=== PATIENT | male | born 1945 | race Caucasian/White ===

== ENCOUNTER → 2016-12-01 | Day surgery (SDC) | payer MEDICARE, OTHER ==
--- NOTE | 2016-11-27 11:55 | Pre-Procedure Note/Attestation ---
Pre-Procedure Note/Attestation Complete Prior to Procedure Planned Procedure: left Procedure Narrative: 1. CATARACT EXTRACTION WITH PHACO AND PC IOL IMPLANTATION, LEFT EYE. 2.MALYUGIN RING INSERTION, LEFT EYE FOR FLOPPY IRIS SYNDROME. 3.COMPLEX CATARACT , LEFT EYE Indications for Procedure Pre-Operative Diagnosis: 1. CATARACT ,LEFT EYE. 2. FLOPPY IRIS SYNDROME, LEFT EYE 3. COMPLEX CATARACT , LEFT EYE Attestation I attest that I discussed the nature of the procedure; its benefits; risks and complications; and alternatives (and the risks and benefits of such alternatives ), prior to the procedure, with the patient (or the patient's legal physician relations representative). I attest that, if there was a reasonable possibility of needing a blood transfusion, the patient (or the patient's legal physician relations representative) was given the [facility] standardized written summary, pursuant to the [place] Blood Safety Act ([place] Health and Safety Code # 1645, as amended). I attest that I re-evaluated the patient just prior to the surgery and that there has been no change in the patient's H&P, except as documented below: JANIA BURGER Nov 27, 2016 11:55
[2016-12-01] VITALS (10 sets, daily range): BP systolic 100–124; BP diastolic 62–75
[~2016-12-01] VITALS: Ht 177.8 cm; Wt 88.5 kg
[~2016-12-01] MED LIST: AMITIZA24 MCG ORAL; ARICEPT5 MG ORAL; Akten 3.5% 1ml Btl ONE; BSS 15ml BTL ONE; BSS 500ml btl ONE; Dexamethasone 4mg/ml vial ONE; Diclofenac Sod 0.1% Op Soln ONE; ECOTRIN325 MG ORAL; EPINEPHrine 1mg/1ml Amp ONE; Gatifloxacin Opth Solution 0.5% ONE; LR 1000ml 1,000 ML IVLG SCH; LR 1000ml ONE; Lidocaine 1% MPF 10mg/ml 5ml ONE; MIACALCIN1 SPRAYS NASAL; Maxitrol Opth Oint 3.5gm ONE; Midazolam 2mg/2ml Inj ONE; NAPROSYN500 M1 ORAL; NS Irrig 1000ml ONE; Phenylephrine 10% Opth Soln 5ml ONE; Povidone-Iodine 5% opth solution ONE; Propofol 10mg/ml 20ml IV ONE; Sodium Hyaluronate 10 mg/ml 0.85ml ONE; Sterile Water Irrig 1000ml IRRIG ONE; TAMSULOSIN HCL0.4 MG ORAL; TIZANIDINE HCL4 MG ORAL; Tropicamide 1% Opth Soln ONE; VITAMIN D400 INTLU ORAL; acetaZOLAMIDE 125mg tab ORAL ONE; fentaNYL 100 mcg/2 mL IV ONE; fentaNYL 100 mcg/2 mL IV PRN
[2016-12-01] MEDS: Phenylephrine 10% Opth Soln 5ml LEFT EYE SCH ×3 (07:07→07:30)
[2016-12-01] MEDS: Tropicamide 1% Opth Soln LEFT EYE SCH ×3 (07:07→07:31)
[2016-12-01] MEDS: Gatifloxacin Opth Solution 0.5% LEFT EYE SCH ×3 (07:08→07:34)
[2016-12-01] MEDS: Diclofenac Sod 0.1% Op Soln LEFT EYE SCH ×3 (07:08→07:31)
[2016-12-01] MEDS: Akten 3.5% 1ml Btl LEFT EYE SCH ×3 (07:09→07:34)
--- NOTE | 2016-12-01 08:23 | Anethesia Preoperative Eval ---
Anesthesia Pre-op PMH/ROS General Date of Evaluation: Dec 01, 2016 Time of Evaluation: 07:58 Anesthesiologist: Ethel ASA Score: ASA 2 Mallampati Score Class I : Soft palate, uvula, fauces, pillars visible Class II: Soft palate, uvula, fauces visible Class III: Soft palate, base of uvula visible Class IV: Only hard plate visible Mallampati Classification: Class II Surgeon: Andres Diagnosis: L eye cataract extraction with IOL Surgical Procedure: L eye cataract Anesthesia History: none Family History: no anesthesia problems Allergies: Coded Allergies: No Known Allergies (Unverified , 11/27/16) Medications: see eMAR Past Medical History Cardiovascular: Denies: CAD, HTN, OR, arrhythmia, other, valve dz Pulmonary: Denies: COPD, JEANIE, asthma, other Gastrointestinal/Genitourinary: Reports: GERD, Denies: CRI, ESRD, other Neurologic/Psychiatric: Denies: CVA, TIA, dementia, depression/anxiety, other Endocrine: Denies: DM, hypothyroidism, other, steroids HEENT: Reports: cataract (L), cataract (R), Denies: [place] (L[place] (R), glaucoma, other Hematology/Immune: Denies: DVT, anemia, bleeding disorder, other Musculoskeletal/Integumentary: Denies: DDD, DJD, OA, RA, edema, other PMH Narrative: as above PSxH Narrative: see chart Anesthesia Pre-op Phys. Exam Physician Exam Last Vital Signs Date Time Temp Pulse Resp B/P Pulse Ox O2 Delivery O2 Flow Rate FiO2 12/01/16 07:22 97.2 57 18 124/75 97 Room Air Constitutional: NAD Neurologic: CN 2-12 intact Cardiovascular: RRR, no M/R/G Respiratory: CTA Gastrointestinal: S/NT/ND Airway Exam Mallampati Score: Class II MO: full Neck: flexible ROM: full Teeth: missing Dentures: no lower, no upper Anesthesia Pre-op A/P Labs see chart Studies Pre-op Studies: EKG - NSR Risk Assessment & Plan Assessment: ASA 2 Plan: MAC Status Change Before Surgery: No Pre-Antibiotics Drug: none NAVEEN SILVER M.D. Dec 01, 2016 08:23
--- NOTE | 2016-12-01 08:58 | Brief Operative Note ---
Immediate Post Operative Note Operative Note Chief Complaint: Blurry vision, difficulty driving abd reading, left eye Pre-op Diagnosis: 1. CATARACT ,LEFT EYE. 2. FLOPPY IRIS SYNDROME, LEFT EYE 3. COMPLEX CATARACT , LEFT EYE Procedure: 1- Cataract extraction with phaco and PC IOL implantation, left eye 2- Malyugin ring insertion, left eye 3- Complex cataract, left eye Post-op Diagnosis: same as pre-op Surgeon: Jania Campos MD Bench Loom Weaver: None Additional Surgeons: None Anesthesiologist: jane Varela Anesthesia: MAC Specimen: none Complications: none Condition: stable Estimated Blood Loss: none Drains: none Implant(s) used?: Yes - Monofocal PC IOL implanted in the left eye without complication JANIA CAMPOS Dec 01, 2016 08:58
--- NOTE | 2016-12-01 09:24 | Immediate Post-Op Evaluation ---
Immediate Post-Op Evalulation Immediate Post-Op Evalulation Procedure: L eye cataract extraction with IOL Date of Evaluation: Dec 01, 2016 Time of Evaluation: 08:56 IV Fluids: 200 Blood Products: none Estimated Blood Loss: none Urinary Output: none Blood Pressure Systolic: 118 Blood Pressure Diastolic: 57 Pulse Rate: 64 Respiratory Rate: 20 O2 Sat by Pulse Oximetry: 99 Temperature (Fahrenheit): 97.5 Pain Score (1-10): 2 Nausea: No Vomiting: No Complications none Patient Status: awake, patent, none Hydration Status: adequate NAVEEN SILVER M.D. Dec 01, 2016 09:24
--- NOTE | 2016-12-01 09:58 | 48 Hour Post Anesthesia Eval ---
Post Anesthesia Evaluation Procedure: L eye cataract extraction with IOL Date of Evaluation: Dec 01, 2016 Time of Evaluation: 09:57 Blood Pressure Systolic: 122 0: 57 Pulse Rate: 68 Respiratory Rate: 20 Temperature (Fahrenheit): 97.6 O2 Sat by Pulse Oximetry: 98 Airway: patent Nausea: No Vomiting: No Pain Intensity: 2 Hydration Status: adequate Cardiopulmonary Status: stable Mental Status/LOC: patient returned to baseline Follow-up Care/Observations: n/a Post-Anesthesia Complications: none Follow-up care needed: ready to discharge NAVEEN SILVER M.D. Dec 01, 2016 09:58
--- NOTE | 2016-12-01 17:39 | Operative Note - Dictated ---
DATE OF OPERATION: 12/01/2016 FACILITY: [facility]. SURGEON: David Campos M.D. CLIENT DELIVERY SPECIALIST: None. ANESTHESIOLOGIST: Khanh Hawkins M.D. ANESTHESIA: Monitored anesthesia care (MAC). PREOPERATIVE DIAGNOSES: 1. Cataract of the left eye. 2. Floppy iris syndrome. 3. Complex cataract. POSTOPERATIVE DIAGNOSES: 1. Cataract of the left eye. 2. Floppy iris syndrome. 3. Complex cataract. SURGERY PERFORMED: 1. Cataract extraction with phacoemulsification and posterior chamber intraocular lens implantation in the left eye. 2. Malyugin ring insertion for treatment of floppy iris syndrome in the left eye. 3. Complex cataract treatment. INDICATION FOR SURGERY: The patient is a 70-year-old gentleman with history of lumbar spinal stenosis, hypertension, and benign prostatic hypertrophy. He is taking medications including Naprosyn 500 mg, Aricept 5 mg, Claritin 10 mg, Ecotrin 81 mg, vitamin D3 5000 units a day, and Flomax 0.4 mg capsule a day. He is complaining of blurry vision in the left eye. On examination of the left eye, the cornea is clear. Anterior chamber is clean and quiet, but is shallow. Pupillary reflex is normal. There is no RAPD. There is 3+ nuclear sclerosis and 2+ cortical cataract. Funduscopy shows macula is normal. Optic disc is normal. Periphery retina is flat. To improve the vision in the left eye, the cataract has to be removed and posterior chamber intraocular lens has to be implanted. INFORMED CONSENT: The nature of the surgery, risks, benefits, alternatives, and potential complications were explained all in detail to the patient. The potential complications including, but not limited to bleeding, infection, posterior capsular rupture, lens subluxation, flat anterior chamber, iris prolapse, uveitis, corneal edema, macular edema, endophthalmitis, retinal detachment, loss of vision, and even loss of the eye were all explained in detail to the patient. The patient voiced understanding and accepted all the complications. The alternatives including accommodating lenses, multifocal lenses, toric lens, and conventional cataract surgery with limbal relaxing incision for treatment of astigmatism were all explained in detail to the patient in his language Farsi. The patient voiced understanding. The patient elected to have only conventional cataract surgery in the left eye. Then, he signed a consent form, which is in the chart. DESCRIPTION OF SURGERY AND FINDINGS: Following that, the patient was taken to the operation room in stable condition. Lidocaine gel, Akten 3.5% was applied to the conjunctiva of the left eye. IV sedation was given by the anesthesiologist, Dr. Hawkins. After adequate anesthesia and sedation had been achieved, the left eye was prepped and draped in a sterile fashion for intraocular surgery. Following that, a speculum was placed in the left eye. Following that, using a Super Sharp knife, a clear corneal side port was created. Lidocaine 1% without preservative (MPF) was injected into the anterior chamber. The viscoelastic agent Healon was injected into the anterior chamber. Following that, a clear corneal temporal keratotomy was performed with a 2.8 mm keratome in the temporal side of the cornea. Following that, viscoelastic agent Healon was injected into the anterior chamber again. Following that, a Malyugin ring was injected into the anterior chamber. The coil of the Malyugin ring was engaged with the sphincter of the pupil. A jennifer-shaped space was created for safe capsulorrhexis and safe phacoemulsification. Following that, [place] blue was injected under the viscoelastic agent to stain the anterior capsule of the lens. Following that, fresh clear new viscoelastic agent was injected into the anterior chamber. Under the viscoelastic agent, an anterior capsulotomy was performed in the fashion of capsulorrhexis beautifully. Following that, all viscoelastic agent was removed from the anterior chamber. Following that, with balanced salt solution, hydrodissection and hydrodelineation were performed and the nucleus was freed. Following that, clear fresh viscoelastic agent was injected into the anterior chamber to protect the endothelium of the cornea. Following that, using phacoemulsification machine in the fashion of horizontal chop, the nucleus was removed in toto. Following that, the cortical material was removed from the capsular bag using irrigation aspiration unit. Following that, the capsular bag was polished. Following that, the capsular bag was filled with viscoelastic agent Healon. Following that, a +21 diopter ZCB00 foldable PCIOL was injected into the capsular bag. The serial number of the lens is [id number]. Following that, using a Sinskey hook, the lens was manipulated and put in the proper position. Following that, the viscoelastic agent was removed from the anterior posterior part of the lens and the anterior chamber was filled with balanced salt solution. The wound was hydrated with balanced salt solution. The wound was checked for leakage. There was no leakage. Vigamox eye drops were applied to the conjunctiva of the left eye, and the patient tolerated the surgery without complication. At the end of the surgery, the Malyugin ring was removed from the anterior chamber, and the viscoelastic agent was removed from the anterior posterior part of the lens. Following that, the wound was hydrated with balanced salt solution and the wound was checked for leakage. There was no leakage. Vigamox eye drops applied to the conjunctiva of the left eye. The patient tolerated the surgery without complications. At the end of the surgery, the eye was patched with a clear sterile fenestrated shield. Following that, the patient was transferred to the recovery room. In the recovery room, 125 mg Diamox was given by mouth stat. Postoperative orders and directions were given to the patient. The patient will be discharged home upon stabilization. The patient will be followed in my office tomorrow morning at 6.30 a.m. David Campos M.D. DR: GLENROY JOB#: [id number] CC:
--- NOTE | 2016-12-01 17:39 | Discharge Summary ---
DATE OF ADMISSION: 12/01/2016 DATE OF DISCHARGE: 12/01/2016 REASON FOR HOSPITALIZATION: Cataract of the left eye. SURGERY PERFORMED: 1. Cataract extraction with phacoemulsification and posterior chamber intraocular lens implantation in the left eye. 2. 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 CONDITION IN THE HOSPITAL: The patient tolerated the surgery without complications. DISCHARGE CONDITION: The patient was stable at discharge. DISCHARGE MEDICATIONS: 1. Prednisolone 1% q.i.d., left eye. 2. Vigamox eyedrops one drop q.i.d., left eye. 3. Years ago. 4. Ilevro eyedrops one drop q.i.d., left eye. POSTOPERATIVE ORDERS: The patient has to rest at home. No bending. No lifting. No watching TV tonight. Postoperative Followup: The patient will be followed in my office tomorrow morning at 06:30 a.m. David Campos M.D. DR: GLENROY JOB#: [id number] CC:
== END | disposition home or self-care (01) ==
LOC: SUR 06:32
DX: H25.12 Age-related nuclear cataract, left eye (principal); H25.012 Cortical age-related cataract, left eye; H21.81 Floppy iris syndrome; N40.0 Benign prostatic hyperplasia without lower urinary tract symptoms; K21.9 Gastro-esophageal reflux disease without esophagitis; M48.06 Spinal stenosis, lumbar region; M25.50 Pain in unspecified joint; Z79.899 Other long term (current) drug therapy
CPT/HCPCS: 66982; J0171; J1100; J2250; J2704; J3010; J7120; V2632; 94003; 94150

== ENCOUNTER → 2016-12-08 | Day surgery (SDC) | payer MEDICARE, OTHER ==
[~2016-12-08] VITALS: Ht 167.6 cm; Wt 88.5 kg
[2016-12-08] VITALS (9 sets, daily range): BP systolic 99–124; BP diastolic 55–78
[~2016-12-08] MED LIST changes: -Akten 3.5% 1ml Btl ONE; +Carbachol 0.01% Op Soln 1.5ml vial ONE; -Diclofenac Sod 0.1% Op Soln ONE; +DiphenhydrAMINE 50mg/ml Inj IVP PRN; +DiphenhydrAMINE 50mg/ml Inj ONE; -Gatifloxacin Opth Solution 0.5% ONE; +Labetalol 5mg/ml 20ml vial IV PRN; -Maxitrol Opth Oint 3.5gm ONE; -Midazolam 2mg/2ml Inj ONE; -Phenylephrine 10% Opth Soln 5ml ONE; -Propofol 10mg/ml 20ml IV ONE; -Tropicamide 1% Opth Soln ONE; -fentaNYL 100 mcg/2 mL IV PRN
[2016-12-08] MEDS: Tropicamide 1% Opth Soln RIGHT EYE SCH ×3 (07:24→07:40)
[2016-12-08] MEDS: Diclofenac Sod 0.1% Op Soln RIGHT EYE SCH ×3 (07:24→07:40)
[2016-12-08] MEDS: Phenylephrine 10% Opth Soln 5ml RIGHT EYE SCH ×3 (07:25→07:40)
[2016-12-08] MEDS: Akten 3.5% 1ml Btl RIGHT EYE SCH ×3 (07:25→07:40)
[2016-12-08] MEDS: Gatifloxacin Opth Solution 0.5% RIGHT EYE SCH ×3 (07:25→07:40)
--- NOTE | 2016-12-08 07:34 | Anethesia Preoperative Eval ---
Anesthesia Pre-op PMH/ROS General Date of Evaluation: Dec 08, 2016 Anesthesiologist: Damian ASA Score: ASA 2 Mallampati Score Class I : Soft palate, uvula, fauces, pillars visible Class II: Soft palate, uvula, fauces visible Class III: Soft palate, base of uvula visible Class IV: Only hard plate visible Mallampati Classification: Class II Surgeon: Steve Diagnosis: Right cataract Surgical Procedure: Right cataract extraction with IOL Anesthesia History: none Family History: no anesthesia problems Allergies: Coded Allergies: No Known Allergies (Unverified , 11/27/16) Medications: see eMAR Past Medical History Cardiovascular: Denies: CAD, HTN, VT, arrhythmia, other, valve dz Pulmonary: Reports: asthma, Denies: COPD, JEANIE, other Gastrointestinal/Genitourinary: Reports: other - BPH, Denies: CRI, ESRD, GERD Neurologic/Psychiatric: Denies: CVA, TIA, dementia, depression/anxiety, other Endocrine: Denies: DM, hypothyroidism, other, steroids HEENT: Denies: [place] (L), [place] (R), cataract (L), cataract (R), glaucoma, other Hematology/Immune: Denies: DVT, anemia, bleeding disorder, other Musculoskeletal/Integumentary: Reports: DJD, OA, Denies: DDD, RA, edema, other Other: other - overweight PSxH Narrative: left cataract sx Anesthesia Pre-op Phys. Exam Physician Exam Last Vital Signs Date Time Temp Pulse Resp B/P Pulse Ox O2 Delivery O2 Flow Rate FiO2 12/08/16 07:27 97.7 53 16 119/67 98 Room Air Constitutional: NAD Cardiovascular: RRR Respiratory: CTA Airway Exam Mallampati Score: Class II MO: full ROM: full Anesthesia Pre-op A/P Labs see chart Studies Pre-op Studies: EKG - sr Risk Assessment & Plan Assessment: ASA II Plan: MAC Status Change Before Surgery: No Pre-Antibiotics Drug: N/A MINH GUADALUPE M.D. Dec 08, 2016 07:34
--- NOTE | 2016-12-08 07:47 | 48 Hour Post Anesthesia Eval ---
Post Anesthesia Evaluation Procedure: Right cataract extraction with IOL Date of Evaluation: Dec 08, 2016 Blood Pressure Systolic: 119 0: 71 Pulse Rate: 49 Respiratory Rate: 16 O2 Sat by Pulse Oximetry: 99 Airway: patent Nausea: No Vomiting: No Pain Intensity: 0 Hydration Status: adequate Cardiopulmonary Status: at baseline Mental Status/LOC: patient returned to baseline Post-Anesthesia Complications: 0 Follow-up care needed: ready to discharge MINH GUADALUPE M.D. Dec 08, 2016 07:47
--- NOTE | 2016-12-08 07:47 | Immediate Post-Op Evaluation ---
Immediate Post-Op Evalulation Immediate Post-Op Evalulation Procedure: Right cataract extraction with IOL Date of Evaluation: Dec 08, 2016 Time of Evaluation: 09:05 IV Fluids: 300 Blood Products: 0 Estimated Blood Loss: 0 Urinary Output: 0 Blood Pressure Systolic: 124 Blood Pressure Diastolic: 76 Pulse Rate: 50 Respiratory Rate: 16 O2 Sat by Pulse Oximetry: 100 Temperature (Fahrenheit): 97.4 Pain Score (1-10): 0 Nausea: No Vomiting: No Complications 0 Patient Status: awake, reacts, patent, none Hydration Status: adequate Drug: N/A MINH GUADALUPE M.D. Dec 08, 2016 07:47
--- NOTE | 2016-12-08 08:08 | Pre-Procedure Note/Attestation ---
Pre-Procedure Note/Attestation Complete Prior to Procedure Planned Procedure: right Procedure Narrative: 1. CATARACT EXTRACTION WITH PHACO AND PC IOL IMPLANTATION, RIGHT EYE. 2.MALYUGIN RING INSERTION, RIGHT EYE FOR FLOPPY IRIS SYNDROME. 3.COMPLEX CATARACT , RIGHT EYE Indications for Procedure Pre-Operative Diagnosis: 1. CATARACT , RIGHT EYE. 2. FLOPPY IRIS SYNDROME,RIGHT EYE 3. COMPLEX CATARACT , RIGHT EYE Attestation I attest that I discussed the nature of the procedure; its benefits; risks and complications; and alternatives (and the risks and benefits of such alternatives ), prior to the procedure, with the patient (or the patient's legal development representative). I attest that, if there was a reasonable possibility of needing a blood transfusion, the patient (or the patient's legal development representative) was given the [facility] standardized written summary, pursuant to the [place] Blood Safety Act ([place] Health and Safety Code # 1645, as amended). I attest that I re-evaluated the patient just prior to the surgery and that there has been no change in the patient's H&P, except as documented below: JANIA BURGER Dec 08, 2016 08:08
--- NOTE | 2016-12-08 09:05 | Brief Operative Note ---
Immediate Post Operative Note Operative Note Chief Complaint: Blurry vision, right eye difficulty driving and reading Pre-op Diagnosis: 1. CATARACT , RIGHT EYE. 2. FLOPPY IRIS SYNDROME,RIGHT EYE 3. COMPLEX CATARACT , RIGHT EYE Procedure: 1- Cataract extractio with phaco and PC IOL implantation, right eye 2- Malyugin ring insertion for floppy iris syndrome 3- Complex cataract removed Post-op Diagnosis: same as pre-op Surgeon: Jania Campos MD. Cable Mock Up Assembler: None Additional Surgeons: None Anesthesiologist: Dr. Salgado Anesthesia: MAC Specimen: none Complications: none Condition: stable Estimated Blood Loss: none Drains: none Implant(s) used?: Yes - Monofocal PC IOL implanted in the right eye without complication JANIA CAMPOS Dec 08, 2016 09:05
--- NOTE | 2016-12-08 16:08 | Operative Note - Dictated ---
DATE OF OPERATION: 12/08/2016 FACILITY: [facility]. SURGEON: David Campos M.D. REGIONAL AGRONOMIST: None. ANESTHESIOLOGIST: Dr. Salgado. ANESTHESIA: Monitored anesthesia care (MAC). PREOPERATIVE DIAGNOSES: 1. Cataract of the right eye. 2. Floppy iris syndrome. 3. Complex cataract. POSTOPERATIVE DIAGNOSES: 1. Cataract of the right eye. 2. Floppy iris syndrome. 3. Complex cataract. SURGERY PERFORMED: 1. Cataract extraction with phacoemulsification of posterior chamber intraocular implantation in the right eye. 2. Malyugin ring insertion for treatment of floppy iris syndrome in the right eye. 3. Complex cataract treatment. INDICATION FOR SURGERY: The patient is a 71-year-old gentleman with a history of lumbar spine stenosis, hypertension, and benign prostatic hypertrophy. He is is taking medications including Naprosyn 500 mg, Aricept 5 mg, Claritin 10 mg, Ecotrin 81 mg, vitamin D 5000 units a day, and Flomax 0.4 mg capsule a day. He is complaining of blurry vision in the right eye. He had cataract surgery last week in the left eye and he is happy with the result. On examination of the right eye, his cornea is clear. Anterior chamber is clean and quiet, but is very shallow. Pupillary reflex is normal. There is no RAPD. There is 3+ nuclear sclerosis and 2+ cortical cataract. Funduscopy shows macula is normal. Optic discs is normal. Periphery retina is flat. To improve his vision in the right eye, the cataract has to be removed and posterior chamber intraocular lens has to be implanted. INFORMED CONSENT: The nature of the surgery, risks, benefits, alternatives, and potential complications were explained all in detail to the patient in his language, Farsi. The potential complications including, but not limited to bleeding, infection, posterior capsular rupture, lens subluxation, flat anterior chamber, iris prolapse, uveitis, corneal edema, macular edema, endophthalmitis, retinal detachment, loss of vision, and even loss of the eye were all explained in detail to the patient and the patient voiced understanding and accepted all the complications. The alternatives including accommodating lens, multifocal lens, toric lens, and conventional cataract surgery with limbal relaxing incision for treatment of astigmatism were all explained in detail to the patient in his language, Farsi. The patient voiced understanding. The patient elected to have only conventional cataract surgery in the right eye. Then, he signed the consent form, which is in the chart. DESCRIPTION OF SURGERY AND FINDINGS: Following oral and written consent, the patient was taken to the operating room in stable condition. Lidocaine gel Akten 3.5% was applied to the conjunctiva of the right eye. IV sedation was given by the anesthesiologist, Dr. Salgado. After adequate anesthesia and sedation had been achieved, the right eye was prepped and draped in usual fashion for intraocular surgery. Following that, the speculum was placed in the right eye. Following that, using a Super Sharp knife, a clear corneal side port was created. Lidocaine 1% without preservative (MPF) was injected into the anterior chamber. The viscoelastic agent Healon was injected into the anterior chamber. Following that, a clear corneal temporal keratotomy was performed with 2.8 mm keratome in the temporal side of the cornea. Following that, viscoelastic agent injected into anterior chamber again. Following that, Malyugin ring was injected into the anterior chamber. A coils of the Malyugin ring were engaged with sphincter of the pupil. A jennifer-shaped space was created for safe capsulorrhexis and phacoemulsification. Following that, Vision blue was injected under the viscoelastic agent to stain the anterior capsule of the lens. Following that, a fresh and clear viscoelastic was injected into the anterior chamber. Under viscoelastic agent, an anterior capsulotomy was performed in the fashion of capsulorrhexis beautifully. Following that, all viscoelastic agent was removed from the anterior chamber. Following that, with balanced salt solution hydrodissection and hydrodelineation was performed and the nucleus was freed. Following that, clear fresh viscoelastic agent was injected into the anterior chamber to protect the endothelium of the cornea. Following that, using the phacoemulsification machine in the fashion of horizontal chop, the nucleus was removed in toto. Following that, cortical material was removed from the capsular bag using irrigation aspiration unit. Following that, the capsular bag was polished. Following that, the capsular bag was filled with viscoelastic agent, Healon. Following that, a +20.5 diopter ZCB00 foldable PCIOL with serial number #[id number] was injected into the capsular bag. Using a Sinskey hook, the lens was manipulated and put in the proper position. Following that, the viscoelastic was removed from the anterior and posterior part of the lens and the anterior chamber was filled with balanced salt solution. Following that, the wound was hydrated with balanced salt solution. Following that, the wound was checked for leakage, there was no leakage. Vigamox eyedrops were applied to the conjunctiva of the right eye. The patient tolerated the surgery without complications. At the end of the surgery, the Malyugin ring was removed from the anterior chamber and the viscoelastic agent was removed from the anterior posterior part of the lens and the wound was hydrated with balanced salt solution and the wound was checked for leakage, there was no leakage. Vigamox eyedrops were applied to the conjunctiva of the right eye. The patient tolerated the surgery without complications. At the end of the surgery, the eye was patched with a clear sterile fenestrated shield. Following that, the patient was transferred to the recovery room. In the recovery room, 125 mg Diamox was given by mouth stat. Postoperative orders and directions were given to the patient. The patient will be discharged home upon stabilization. The patient will be followed in my office tomorrow morning at 6:30 a.m. David Campos M.D. DR: RICHARDSON JOB#: [id number] CC:
--- NOTE | 2016-12-08 16:08 | Discharge Summary ---
DATE OF ADMISSION: 12/08/2016 DATE OF DISCHARGE: 12/08/2016 REASON FOR HOSPITALIZATION: Cataract of the right eye. SURGERY PERFORMED: 1. Cataract extraction with phacoemulsification posterior chamber intraocular lens implantation in the right eye. 2. 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 CONDITION IN THE HOSPITAL: The patient tolerated the surgery without complications. DISCHARGE CONDITION: The patient was stable at discharge. DISCHARGE MEDICATIONS: 1. Prednisolone 1% t.i.d. in the right eye. 2. Vigamox eyedrops one drop q.i.d. right eye. 3. Ilevro eyedrops one drop q.i.d. in the right eye. POSTOPERATIVE ORDERS AND INSTRUCTIONS: The patient has to rest at home. No bending. No lifting. No watching TV tonight. Postoperative Followup: The patient will be followed in the office is tomorrow morning at 6:30 a.m. David Campos M.D. DR: RICHARDSON JOB#: [id number] CC:
--- NOTE | 2016-12-17 08:28 | Pre-op HX & Phy Repo 2 SIG ---
DATE OF ADMISSION: 12/08/2016 REASON FOR EVALUATION: I was asked by Dr. David Campos to see this 71-year-old male, who is going for elective surgery on the left eye. The patient has cataract, right eye. The patient was evaluated. Chart was reviewed. PAST MEDICAL HISTORY: Remarkable for back pain, osteoporosis, benign prostatic hypertrophy. No history of hypertension or stroke. Denies history of diabetes. No renal failure. No anemia. No thyroid problem. No GI bleeding. History of Parkinson disease and migraine. PAST SURGICAL HISTORY: Left eye cataract surgery in November. FAMILY HISTORY: Mother has cancer and father . ALLERGIES: To penicillin. MEDICATIONS: Present medications include naproxen, calcitonin, Flomax, and laxative. SOCIAL HISTORY: The patient smokes occasionally and alcohol occasionally as well. No street drugs. PHYSICAL EXAMINATION: GENERAL: Alert, well-developed, well-nourished male in his 70s, in no acute distress. VITAL SIGNS: Blood pressure 119/67, temperature 97.7 degrees, pulse 53 per minute, respirations 16, and O2 saturation 98% on room air. SKIN: Clear and warm. No cyanosis. No diaphoresis. No rashes. LYMPH NODES: Not enlarged. HEENT: Head normocephalic. Normal hair growth. Ears, clear. Eyes, full description per Dr. David Campos. Mouth clear and moist. No dentures. NECK: No jugular venous distention. Carotids artery +2. Trachea midline. CHEST: No deformity. No asymmetry. LUNGS: Clear on auscultation and percussion. No rales or rhonchi. HEART: Normal sinus rhythm. No ectopy. No murmur. No S3 or S4. ABDOMEN: Soft, benign. Liver and spleen not enlarged. EXTREMITIES: No edema or varicose veins. No calf tenderness. No deformity. GENITOURINARY TRACT: CVA nontender. History of BPH and nocturia. LABORATORY AND DIAGNOSTIC DATA: ECG, normal sinus rhythm, normal ECG. The patient did not eat or drink from 5 p.m. yesterday. Lab work, see copy, in normal limits. IMPRESSION: 1. Cataract, right eye. 2. Benign prostatic hypertrophy. 3. Osteoporosis. 4. Low back pain. PLAN: Cataract extraction, right eye with intraocular lens implant per Dr. David Campos. CONCLUSION: The patient has history of benign prostatic hypertrophy and osteoporosis. The patient's vital signs stable. EKG is normal. The patient did not eat or drink from last night. The patient's condition optimized for surgery. Dayan Delvalle M.D. DR: Heladio JOB#: [id number] CC:
== END | disposition home or self-care (01) ==
LOC: SUR 06:51
DX: H25.11 Age-related nuclear cataract, right eye (principal); H25.011 Cortical age-related cataract, right eye; H21.81 Floppy iris syndrome; M54.5 Low back pain; M81.0 Age-related osteoporosis without current pathological fracture; N40.0 Benign prostatic hyperplasia without lower urinary tract symptoms; I10 Essential (primary) hypertension; J45.909 Unspecified asthma, uncomplicated; M19.90 Unspecified osteoarthritis, unspecified site; E66.3 Overweight; M48.06 Spinal stenosis, lumbar region; Z88.0 Allergy status to penicillin
CPT/HCPCS: 66982; J0171; J1100; J1200; J3010; J7120; V2632; 94003; 94150